=== PATIENT | female | born 1950 | race Caucasian/White ===

== ENCOUNTER → 2016-11-03 | Outpatient (CLI) | payer OTHER ==
[2016-11-03 14:01] LABS: ANION GAP 8 MEQ/L (8-16); BLOOD UREA NITROGEN 19 MG/DL (7-18); CARBON DIOXIDE LEVEL 27 MEQ/L (21-32); CHLORIDE LEVEL 99 MEQ/L (98-107); CREATININE FOR GFR 0.66 MG/DL (0.55-1.02); GLOMERULAR FILTRATION RATE > 60.0 (>45); GLUCOSE, FASTING 208 MG/DL (80-110); POTASSIUM SERUM 4.5 MEQ/L (3.5-5.1); SODIUM LEVEL 134 MEQ/L (136-145)
== END ==
LOC: M WUC 09:50
PROVIDERS: ATTEND Internal Medicine Endocrinology, Diabetes & Metabolism
DX: E11.65 Type 2 diabetes mellitus with hyperglycemia (principal)

== ENCOUNTER → 2016-11-03 | Outpatient (CLI) | payer OTHER ==
[2016-11-03 14:16] LABS: THYROXINE (T4) 10.9 UG/DL (4.5-12.0)
== END ==
LOC: M WUC 09:54
PROVIDERS: ATTEND Family Medicine
DX: E03.9 Hypothyroidism, unspecified (principal)

== ENCOUNTER → 2016-11-25 | Outpatient (CLI) | payer OTHER ==
[~2016-11-25] MED LIST: ASPI81TA85 PO; ATOR1TAB19 PO; BYDU1INJ SQ; CALCTAB7 PO; FARX1TAB3 PO; FISH5CAP PO; HUMA100I5 SQ; HYDR12CA PO; LANTINJ4 SQ; LEVO50TA5 PO; LISI-538 PO; METF10004 PO; METO1TAB7 PO; MULT1TAB10 PO; OMEP20CA3 PO; PARO40TA2 PO
[2016-11-25 09:06] LABS: BASO % 0.6 % (0.0-1.0); EOS # 0.4 K/mm3 (0.0-0.50); EOS % 4.5 % (0.0-3.0); LARGE UNSTAINED CELL # 0.2 K/mm3 (0.0-0.4); LYMPH # 2.7 K/mm3 (1.5-4.5); LYMPH % 30.1 % (24.0-44.0); MEAN CORPUSCULAR HEMOGLOBIN 28.3 pg (27.0-33.0); MEAN CORPUSCULAR VOLUME 85.9 fl (80.0-96.0); MONO # 0.4 K/mm3 (0.0-0.8); MONO % 4.7 % (0.0-5.0); NEUTROPHILS # 5.2 K/mm3 (1.8-7.7); PLATELET COUNT, AUTOMATED 343 k/mm3 (150-450); RED CELL DISTRIBUTION WIDTH 13.4 % (11.5-14.5); WHITE BLOOD COUNT 8.9 K/mm3 (4.0-10.0)
[2016-11-25 09:51] LABS: ALBUMIN 3.6 GM/DL (3.2-5.2); ALBUMIN/GLOBULIN RATIO 0.92 (1.00-1.93); ALKALINE PHOSPHATASE 71 U/L (45-117); ALT/SGPT 32 U/L (12-78); ANION GAP 7 MEQ/L (8-16); AST/SGOT 17 U/L (15-37); BILIRUBIN,TOTAL 0.4 MG/DL (0.2-1.0); BLOOD UREA NITROGEN 17 MG/DL (7-18); CALCIUM LEVEL 9.3 MG/DL (8.8-10.2); CARBON DIOXIDE LEVEL 30 MEQ/L (21-32); CHLORIDE LEVEL 103 MEQ/L (98-107); CHOLESTEROL LEVEL 169 MG/DL (<200); CREATININE FOR GFR 0.68 MG/DL (0.55-1.02); GLOMERULAR FILTRATION RATE > 60.0 (>45); GLUCOSE, FASTING 163 MG/DL (80-110); POTASSIUM SERUM 4.9 MEQ/L (3.5-5.1); SODIUM LEVEL 140 MEQ/L (136-145); TOTAL PROTEIN 7.5 GM/DL (6.4-8.2); TRIGLYCERIDES LEVEL 316 MG/DL (<150)
== END ==
LOC: M WUC 08:02
PROVIDERS: ATTEND Family Medicine
DX: Z00.00 Encounter for general adult medical examination without abnormal findings (principal)

== ENCOUNTER 2017-01-26 06:37 | Outpatient (CLI) | payer OTHER ==
[~2017-01-26] VITALS: Ht 165.1 cm; Wt 95.3 kg
[2017-01-26] MEDS ORDERED: NS 1,000 ML IV ONE (07:00)
[2017-01-26] MEDS ORDERED: PROPOFOL 500 MG/50 ML VIAL As Ordered ONE (07:40)
[2017-01-26] MEDS ORDERED: LIDOCAINE 2% INJ 100 MG/5 ML SDV (FOR ANES.) As Ordered ONE (07:40)
--- NOTE | 2017-01-26 08:12 | ROOR ---
Patient Name: Rebecca Smith Procedure Date: 01/26/2017 7:42 AM Date of : 1950 Age: 66 Room: [facility] Gender: Female Note Status: Finalized Procedure: Colonoscopy Indications: High risk colon cancer surveillance: Personal history of colonic polyps Providers: Hesham Meredith Jr, MD Referring MD: Margy Vernon MD Requesting Provider: Medicines: Propofol per Anesthesia Complications: No immediate complications. Procedure: Pre-Anesthesia Assessment: - Prior to the procedure, a History and Physical was performed, and patient medications and allergies were reviewed. The patient is competent. The risks and benefits of the procedure and the sedation options and risks were discussed with the patient. All questions were answered and informed consent was obtained. Patient identification and proposed procedure were verified by the physician and the nurse in the pre-procedure area and in the procedure room. Mental Status Examination: alert and oriented. Airway Examination: normal oropharyngeal airway and neck mobility. Respiratory Examination: clear to auscultation. CV Examination: normal. ASA Grade Assessment: II - A patient with mild systemic disease. After reviewing the risks and benefits, the patient was deemed in satisfactory condition to undergo the procedure. The anesthesia plan was to use moderate sedation / analgesia (conscious sedation). Immediately prior to administration of medications, the patient was re-assessed for adequacy to receive sedatives. The heart rate, respiratory rate, oxygen saturations, blood pressure, adequacy of pulmonary ventilation, and response to care were monitored throughout the procedure. The physical status of the patient was re-assessed after the procedure. The Colonoscope was introduced through the anus and advanced to the cecum, identified by appendiceal orifice and ileocecal valve. The colonoscopy was performed without difficulty. The patient tolerated the procedure well. The quality of the bowel preparation was adequate and good. Findings: The rectum, recto-sigmoid colon, descending colon, transverse colon, cecum, appendiceal orifice and ileocecal valve appeared normal. Three polyps were found in the sigmoid colon and ascending colon. The polyps were small in size. These polyps were removed with a hot snare. Resection and retrieval were complete. Impression: - The rectum, recto-sigmoid colon, descending colon, transverse colon, cecum, appendiceal orifice and ileocecal valve are normal. - Three small polyps in the sigmoid colon and in the ascending colon, removed with a hot snare. Resected and retrieved. Recommendation: - Repeat colonoscopy in 5 years for surveillance. Hesham Meredith MD Hesham Meredith Jr, MD 01/26/2017 8:12:27 AM This report has been signed electronically. Number of Addenda: 0 Note Initiated On: 01/26/2017 7:42 AM Estimated Blood Loss: Estimated blood loss: none.
[2017-01-26 08:41] VITALS: BP 117/55
== END 2017-01-26 08:43 | disposition home or self-care (01) ==
LOC: M OPP 06:37
PROVIDERS: ATTEND Surgery
DX: Z12.11 Encounter for screening for malignant neoplasm of colon (principal); Z86.010 Personal history of colon polyps; D12.5 Benign neoplasm of sigmoid colon; D12.2 Benign neoplasm of ascending colon; I10 Essential (primary) hypertension; E78.5 Hyperlipidemia, unspecified; E10.9 Type 1 diabetes mellitus without complications; E03.9 Hypothyroidism, unspecified; R12 Heartburn; M19.90 Unspecified osteoarthritis, unspecified site; F41.9 Anxiety disorder, unspecified; G47.8 Other sleep disorders; R06.83 Snoring; Z79.82 Long term (current) use of aspirin; Z79.899 Other long term (current) drug therapy

== ENCOUNTER → 2017-02-09 | Outpatient (CLI) | payer OTHER ==
[2017-02-09 19:18] LABS: FREE T4 1.09 NG/DL (0.76-1.46)
== END ==
LOC: M WUC 10:44
PROVIDERS: ATTEND Family Medicine
DX: E03.9 Hypothyroidism, unspecified (principal)

== ENCOUNTER → 2017-09-29 | Outpatient (CLI) | payer MEDICARE, OTHER ==
[2017-09-29 18:08] LABS: ANION GAP 9 MEQ/L (8-16); BLOOD UREA NITROGEN 21 MG/DL (7-18); CALCIUM LEVEL 9.3 MG/DL (8.8-10.2); CARBON DIOXIDE LEVEL 24 MEQ/L (21-32); CHLORIDE LEVEL 105 MEQ/L (98-107); CHOLESTEROL LEVEL 147 MG/DL (<200); CREATININE FOR GFR 0.76 MG/DL (0.55-1.30); GLOMERULAR FILTRATION RATE > 60.0 (>45); GLUCOSE, FASTING 181 MG/DL (70-100); HDL CHOLESTEROL 42 MG/DL (>40); NON-HDL-C 105 MG/DL; POTASSIUM SERUM 4.8 MEQ/L (3.5-5.1); SODIUM LEVEL 138 MEQ/L (136-145); TRIGLYCERIDES LEVEL 411 MG/DL (<150)
[2017-09-29 18:12] LABS: CREATININE, URINE 91.5 MG/DL; MALB URINE SIEMENS 14.9 MG/L; MAU/CREAT RATIO 16.2 MCG/MG (0.0-30.0)
== END ==
LOC: M WUC 11:00
DX: E11.65 Type 2 diabetes mellitus with hyperglycemia (principal)
CPT/HCPCS: 80061

== ENCOUNTER → 2018-11-26 | Outpatient (REF) | payer MEDICARE, OTHER ==
[~2018-11-26] MED LIST changes: +IBUP200C25 PO; +KP F1200 PO; +NO ITAB PO; -OMEP20CA3 PO; +OMEP20CA4 PO
[2018-11-26 11:02] LABS: POTASSIUM SERUM 4.7 MEQ/L (3.5-5.1)
[2018-11-26 11:04] LABS: HEMATOCRIT 36.9 % (36.0-47.0); HEMOGLOBIN 11.7 g/dl (12.0-15.5); MEAN CORPUSCULAR HEMOGLOBIN 27.3 pg (27.0-33.0); MEAN CORPUSCULAR HGB CONC 31.7 g/dl (32.0-36.5); MEAN CORPUSCULAR VOLUME 86.2 fl (80.0-96.0); PLATELET COUNT, AUTOMATED 416 10^3/uL (150-450); RED BLOOD COUNT 4.28 10^6/uL (4.00-5.40); WHITE BLOOD COUNT 12.5 10^3/uL (4.0-10.0)
[2018-11-26 11:16] LABS: INR 0.99; PROTHROMBIN TIME 12.8 SECONDS (11.8-14.0)
[2018-11-26 11:17] LABS: PARTIAL THROMBOPLASTIN TIME 27.4 SECONDS (25.0-38.4)
== END ==
LOC: M LABDRAW1 10:08
PROVIDERS: ATTEND Orthopaedic Surgery Sports Medicine
DX: Z01.812 Encounter for preprocedural laboratory examination (principal); Z79.82 Long term (current) use of aspirin; Z79.4 Long term (current) use of insulin

== ENCOUNTER 2018-11-27 13:46 | Day surgery (SDC) | payer MEDICARE, OTHER ==
[~2018-11-27] VITALS: Ht 165.1 cm; Wt 99.7 kg
[~2018-11-27 13:46] MED LIST changes: +LR 1,000 ML IV ONE
[2018-11-27] MEDS ORDERED: MIDAZOLAM INJ 2 MG/2 ML VIAL (J2250) As Ordered ONE (18:43)
[2018-11-27] MEDS ORDERED: BUPIVACAINE HCL 0.25% 30 ML VIAL As Ordered ONE (18:43)
[2018-11-27] MEDS ORDERED: fentaNYL 100 MCG/2 ML INJECTION (J3010) As Ordered ONE ×2 (18:43→19:07)
[2018-11-27] MEDS ORDERED: LIDOCAINE 2% INJ 100 MG/5 ML SDV (FOR ANES.) As Ordered ONE (19:07)
[2018-11-27] MEDS ORDERED: PROPOFOL 200 MG/20 ML VIAL As Ordered ONE (19:07)
[2018-11-27] MEDS ORDERED: ROCURONIUM BROMIDE 50 MG/5 ML VIAL As Ordered ONE (19:25)
[2018-11-27] MEDS ORDERED: dexameTHASONE 4 MG/ML 1ML VIAL (J1100) As Ordered ONE (19:47)
[2018-11-27] MEDS ORDERED: ONDANSETRON 4MG/2ML VIAL (J2405) As Ordered ONE (20:04)
[2018-11-27] MEDS ORDERED: HYDROmorphone HCL 2 MG/ML 1ML VIAL (J1170) As Ordered ONE (20:05)
[2018-11-27] MEDS ORDERED: TRANEXAMIC ACID 100 MG/ML 10ML VIAL As Ordered ONE (20:18)
[2018-11-27] MEDS ORDERED: ePHEDrine SULFATE 25 MG/5 ML(5MG/ML) SYRINGE As Ordered ONE (20:44)
[2018-11-27] MEDS ORDERED: GLYCOPYRROLATE INJ 0.2 MG/ML 2 ML VIAL As Ordered ONE (20:59)
[2018-11-27] MEDS ORDERED: NEOSTIGMINE 10 MG/10 ML VIAL (J2710) As Ordered ONE (20:59)
[2018-11-27] MEDS ORDERED: METOCLOPRAMIDE INJ 10MG/2ML VIAL (J2765) As Ordered ONE (20:59)
[2018-11-27] MEDS ORDERED: oxyCODONE 5MG TAB PO PRN (22:30)
[2018-11-27] MEDS ORDERED: PROMETHAZINE INJ 25 MG/ML VIAL (J2550) IV PRN (22:30)
[2018-11-27] MEDS ORDERED: LR 1,000 ML IV SCH ×2 (22:30→23:00)
[2018-11-27] MEDS ORDERED: HYDROMORPHONE HCL 0.5 MG/ 0.5 ML SYRINGE (J1170 PER 1) IV PRN (22:30)
[2018-11-27] MEDS ORDERED: METOCLOPRAMIDE INJ 10MG/2ML VIAL (J2765) IV PRN (22:30)
[2018-11-27] MEDS ORDERED: fentaNYL 100 MCG/2 ML INJECTION (J3010) IV PRN (22:30)
[2018-11-27] MEDS ORDERED: oxyCODONE 5MG TAB As Ordered ONE (22:54)
[2018-11-27 23:50] VITALS: BP 139/63
--- NOTE | 2018-11-28 00:32 | RO ---
DATE OF PROCEDURE: 11/27/2018 PREOPERATIVE DIAGNOSIS: Right proximal and third humerus fracture. POSTOPERATIVE DIAGNOSIS: Right proximal and third humerus fracture. PREOPERATIVE PLANNED PROCEDURE: Right humerus open reduction internal fixation. PROCEDURE PERFORMED: Right humerus open reduction, internal fixation. SURGEON: Pepe Talbot MD HOSPITAL WELLNESS COORDINATOR: NUT SHELLER MACHINE OPERATOR: Dr. Hernández TYPE OF ANESTHETIC: General anesthetic. OPERATIVE PREAMBLE: This 68-year-old female had a proximal humerus fracture. This was just distal to the metaphyseal region. Is was transverse. It was 100% displaced with shortening. We talked about the pros and cons, the risks and benefits of nonsurgical management versus open reduction internal fixation. She wanted surgery, so we went ahead and consented her for that. I reminded her of the possible risks including but not limited to infection, pain, stiffness, bleeding, neurovascular injury, delayed mal or nonunion, as well as anesthetic complications and . She wished to proceed. I marked the right upper extremity in holding. DESCRIPTION OF PROCEDURE: The patient was brought to operating theater. She was placed supine on a cantilever bed with the long end towards the head. A radiolucent Plexiglas was placed to the right upper extremity, hanging off the edge of the bed and then appropriately padded up to the level of the edge of the bed. The patient was moved over to the edge of the bed with her head at the edge of the bed and placed on a donut and taped over a little bit to the side. General anesthesia was induced. Preoperative time-out was performed confirming the site and the patient. Two grams of intravenous (IV) Ancef was administered as well as 2 grams of IV tranexamic acid prior to the start of the case. The right upper extremity was prepped and draped in the usual sterile fashion and free draped. The C-arm was brought in from the superior aspect of the humerus to take AP and axillary lateral radiographs and appropriately draped. I began by making an anterolateral deltoid splitting approach. This was just centered posterior to the anterolateral acromion. I carried this dissection down through skin and subcutaneous tissue to meticulous hemostasis. I identified the avascular raphae between the anterior and middle thirds of the deltoid muscle. I split this along its length. I measured out approximately 6.5 cm distal to the anterolateral acromion to ensure that I was dissecting around the axillary nerve. I identified the nerve, protected it throughout the case. The nerve was a little bit contused in the posterolateral aspect of it, but kept in continuity and protected during the case. This was a little bit draped over the proximal end just distal to the fracture site. I decompressed the fracture. Removed any fracture hematoma. I reestablished the medullary canal. I placed K-wires to joystick the fracture back in place as well as using longitudinal traction on the arm and internal and external rotation. I achieved preliminary reduction from this on AP and axillary lateral radiographs. I then K-wired the fracture. This proved quite difficult given the transverse nature of the fracture. I tried to lewis it in as best as possible with the jagged fracture ends. I elevated the axillary nerve off the lateral aspect of the proximal humerus. I placed a 5-hole Synthes pre-contoured locking plate underneath the axillary nerve and on the lateral aspect of the bone. I then used a fully-threaded cortical screw to secure the plate down to the lateral aspect of the bone. This was near the fracture site, actually; however, it was propping up the medial calcar segment nicely and reducing the Shenton's line of the shoulder actually quite nicely despite some mild gapping on the lateral side, so we accepted this reduction. I ensured that the plate was distal enough by sliding the plate distally using the oblong screw hole as well and ensuring that the proximal locking jig K-wire passed through that and was at the top of the humerus. I then inserted a number of K-wires centralized through the proximal holes in the plate. I took AP and lateral radiographs, as well as moving the arm through a full range of motion while doing both AP and axillary radiographs to ensure that there was no K-wire penetration and that the reduction appeared appropriate. The calcar was quite well aligned. There was a slight gap on the lateral side, but no obvious varus fracture pattern. I inserted the rest of the fully-threaded cortical locking screws, both proximally and distally. I changed out the original reduction screw for a fully-threaded cortical screw that remained supporting the medial calcar segment. Again, range of motion was full and fracture was solidly fixated. I took axillary radiographs to ensure that the proximal screws were nowhere near the joint surface and not penetrating. Wound was thoroughly irrigated with normal saline. Subcutaneous tissues were closed with interrupted and running #2-0 Vicryl suture. Skin was closed with #3-0 Monocryl. Skin was cleaned with a wet and dry dressing followed by application of Mastisol and Steri-Strips. Adaptic with sterile 4 x 8 gauze and sterile ABD dressings were then placed with cloth tape. The arm was placed back in a sling. The patient was woken up from general anesthetic, taken to the postanesthetic care unit in stable condition. All sponge, needle, and instrument counts were correct. There were no complications. Estimated blood loss 150 mL. Plan for the patient is to be in a sling. Nonweightbearing upper extremity. Start pendulum exercises as well as hand, wrist and elbow exercises. I would like to see her in 2 days time, and they already have a followup. Pain medications are electronically sent to her pharmacy. As it is late when I was doing this case, she may stay overnight for a 23-hour hold, but she is also able to go home if she is comfortable. I spoke to both her son and significant other after the case as well. Sincerely, LEIGH
--- NOTE | 2018-11-28 08:33 | REP ---
Right humerus: Limited study intraoperative films. History: ORIF. 1 minute 37 seconds of fluoroscopy time is reported. Findings: A sequence of two last image hold fluoroscopically obtained spot radiographs of the right proximal humerus document screw plate fixation. Electronically Signed by Michael Steele MD 11/28/2018 09:29 A
== END 2018-11-27 23:59 | disposition home or self-care (01) ==
LOC: M SDC 13:46
PROVIDERS: ATTEND Orthopaedic Surgery Sports Medicine
DX: S42.291A Other displaced fracture of upper end of right humerus, initial encounter for closed fracture (principal); I10 Essential (primary) hypertension; E78.5 Hyperlipidemia, unspecified; G47.30 Sleep apnea, unspecified; Z79.82 Long term (current) use of aspirin; E03.9 Hypothyroidism, unspecified; E10.9 Type 1 diabetes mellitus without complications; Z79.4 Long term (current) use of insulin; K21.9 Gastro-esophageal reflux disease without esophagitis; Z79.84 Long term (current) use of oral hypoglycemic drugs; F41.9 Anxiety disorder, unspecified; Z79.899 Other long term (current) drug therapy; Y93.9 Activity, unspecified; Y92.9 Unspecified place or not applicable
CPT/HCPCS: 23615; 73060; C1713; J0690; J1100; J1170; J2405; J2710; J2765; J3010

== ENCOUNTER → 2019-01-02 | Outpatient (REF) | payer MEDICARE, OTHER ==
[~2019-01-02] MED LIST changes: -LR 1,000 ML IV ONE
[2019-01-02 14:53] LABS: BASO # 0.1 10^3/uL (0.0-0.2); BASO % 0.7 % (0.0-1.0); EOS # 0.5 10^3/uL (0.0-0.50); EOS % 6.4 % (0.0-3.0); HEMATOCRIT 34.5 % (36.0-47.0); HEMOGLOBIN 10.6 g/dl (12.0-15.5); LYMPH # 2.4 10^3/uL (1.5-4.5); LYMPH % 28.6 % (24.0-44.0); MEAN CORPUSCULAR HEMOGLOBIN 26.8 pg (27.0-33.0); MEAN CORPUSCULAR HGB CONC 30.7 g/dl (32.0-36.5); MEAN CORPUSCULAR VOLUME 87.1 fl (80.0-96.0); MONO # 0.5 10^3/uL (0.0-0.8); MONO % 5.9 % (0.0-5.0); NEUTROPHILS # 4.8 10^3/uL (1.8-7.7); PLATELET COUNT, AUTOMATED 397 10^3/uL (150-450); RED BLOOD COUNT 3.96 10^6/uL (4.00-5.40); WHITE BLOOD COUNT 8.3 10^3/uL (4.0-10.0)
[2019-01-02 16:09] LABS: FREE T4 1.17 NG/DL (0.76-1.46); THYROID STIMULATING HORMONE 0.284 uIU/ML (0.358-3.740)
== END ==
LOC: M LABDRAW1 08:47
PROVIDERS: ATTEND Family Medicine
DX: E11.69 Type 2 diabetes mellitus with other specified complication (principal); E03.9 Hypothyroidism, unspecified

== ENCOUNTER → 2019-01-02 | Outpatient (REF) | payer MEDICARE, OTHER ==
[2019-01-02 15:17] LABS: CREATININE, URINE 91.3 MG/DL; MALB URINE SIEMENS 24.8 MG/L; MAU/CREAT RATIO 27.1 MCG/MG (0.0-30.0)
[2019-01-02 16:04] LABS: ALBUMIN 3.6 GM/DL (3.2-5.2); ALT/SGPT 38 U/L (12-78); BILIRUBIN,TOTAL 0.5 MG/DL (0.2-1.0); BLOOD UREA NITROGEN 23 MG/DL (7-18); CARBON DIOXIDE LEVEL 28 MEQ/L (21-32); CHLORIDE LEVEL 101 MEQ/L (98-107); CHOLESTEROL LEVEL 147 MG/DL (<200); CHOLESTEROL RISK RATIO 3.062 (<5); CREATININE FOR GFR 0.79 MG/DL (0.55-1.30); GLOMERULAR FILTRATION RATE > 60.0 (>45); GLUCOSE, FASTING 177 MG/DL (70-100); HDL CHOLESTEROL 48 MG/DL (>40); LDL CHOLESTEROL 58 MG/DL (<100); NON-HDL-C 99 MG/DL; POTASSIUM SERUM 4.4 MEQ/L (3.5-5.1); SODIUM LEVEL 139 MEQ/L (136-145); TOTAL PROTEIN 7.6 GM/DL (6.4-8.2); TRIGLYCERIDES LEVEL 207 MG/DL (<150)
== END ==
LOC: M LABDRAW1 08:44
PROVIDERS: ATTEND Nurse Practitioner Family
DX: E11.65 Type 2 diabetes mellitus with hyperglycemia (principal); E78.2 Mixed hyperlipidemia; E03.9 Hypothyroidism, unspecified

== ENCOUNTER → 2019-05-06 | Outpatient (REF) | payer MEDICARE, OTHER ==
[~2019-05-06] MED LIST changes: +OMEP-172 PO; -OMEP20CA4 PO
[2019-05-06 13:30] LABS: FREE T4 1.13 NG/DL (0.76-1.46); THYROID STIMULATING HORMONE 0.455 uIU/ML (0.358-3.740)
== END ==
LOC: M LABDRAW1 08:35
PROVIDERS: ATTEND Family Medicine
DX: E03.9 Hypothyroidism, unspecified (principal)

== ENCOUNTER → 2019-10-30 | Outpatient (CLI) | payer MEDICARE, OTHER ==
[~2019-10-30] MED LIST changes: -OMEP-172 PO; +OMEP1CAP73 PO
[2019-10-30 10:33] LABS: BASO # 0.1 10^3/uL (0.0-0.2); BASO % 0.6 % (0.0-1.0); EOS # 0.3 10^3/uL (0.0-0.5); EOS % 3.5 % (0.0-3.0); HEMATOCRIT 34.9 % (36.0-47.0); LYMPH # 3.1 10^3/uL (1.5-5.0); LYMPH % 31.7 % (24.0-44.0); MEAN CORPUSCULAR HEMOGLOBIN 26.5 pg (27.0-33.0); MEAN CORPUSCULAR HGB CONC 31.5 g/dl (32.0-36.5); MEAN CORPUSCULAR VOLUME 84.1 fl (80.0-96.0); MONO # 0.7 10^3/uL (0.0-0.8); MONO % 6.8 % (0.0-5.0); NEUTROPHILS # 5.6 10^3/uL (1.5-8.5); NEUTROPHILS % 56.9 % (36.0-66.0); PLATELET COUNT, AUTOMATED 380 10^3/uL (150-450); RED BLOOD COUNT 4.15 10^6/uL (4.00-5.40); WHITE BLOOD COUNT 9.8 10^3/uL (4.0-10.0)
[2019-10-30 11:02] LABS: ALBUMIN 3.5 GM/DL (3.2-5.2); ALT/SGPT 37 U/L (12-78); BILIRUBIN,TOTAL 0.2 MG/DL (0.2-1.0); BLOOD UREA NITROGEN 27 MG/DL (7-18); CALCIUM LEVEL 9.6 MG/DL (8.8-10.2); CARBON DIOXIDE LEVEL 29 MEQ/L (21-32); CHLORIDE LEVEL 104 MEQ/L (98-107); CHOLESTEROL LEVEL 120 MG/DL (<200); CREATININE FOR GFR 0.98 MG/DL (0.55-1.30); FREE T4 1.18 NG/DL (0.76-1.46); GLOMERULAR FILTRATION RATE > 60.0 (>45); GLUCOSE, FASTING 142 MG/DL (70-100); HDL CHOLESTEROL 43 MG/DL (>40); LDL CHOLESTEROL 44 MG/DL (<100); NON-HDL-C 77 MG/DL; POTASSIUM SERUM 5.1 MEQ/L (3.5-5.1); SODIUM LEVEL 140 MEQ/L (136-145); THYROID STIMULATING HORMONE 0.429 uIU/ML (0.358-3.740); TOTAL PROTEIN 7.5 GM/DL (6.4-8.2); TRIGLYCERIDES LEVEL 166 MG/DL (<150)
[2019-10-30 11:04] LABS: CREATININE, URINE 92.7 MG/DL; MALB URINE SIEMENS 10.3 MG/L; MAU/CREAT RATIO 11.1 MCG/MG (0.0-30.0)
[2019-10-30 11:14] LABS: HEMOGLOBIN A1c 6.9 %
== END ==
LOC: M WUC 09:05
PROVIDERS: ATTEND Family Medicine
DX: E11.69 Type 2 diabetes mellitus with other specified complication (principal); E03.9 Hypothyroidism, unspecified

== ENCOUNTER → 2020-02-21 | Outpatient (CLI) | payer MEDICARE, OTHER ==
[~2020-02-21] MED LIST changes: -ASPI81TA85 PO; +ASPI81TA86 PO; +CALC-211 PO; -CALCTAB7 PO
[2020-02-21 10:36] LABS: ALBUMIN 3.6 GM/DL (3.2-5.2); ALT/SGPT 25 U/L (12-78); BILIRUBIN,TOTAL 0.3 MG/DL (0.2-1.0); BLOOD UREA NITROGEN 27 MG/DL (7-18); CALCIUM LEVEL 9.7 MG/DL (8.8-10.2); CARBON DIOXIDE LEVEL 29 MEQ/L (21-32); CHLORIDE LEVEL 105 MEQ/L (98-107); CHOLESTEROL LEVEL 168 MG/DL (<200); CHOLESTEROL RISK RATIO 3.733 (<5); CREATININE FOR GFR 0.69 MG/DL (0.55-1.30); FREE T3 2.3 PG/ML (2.2-4.0); FREE T4 1.09 NG/DL (0.76-1.46); GLOMERULAR FILTRATION RATE > 60.0 (>45); GLUCOSE, FASTING 171 MG/DL (70-100); HDL CHOLESTEROL 45 MG/DL (>40); LDL CHOLESTEROL 78 MG/DL (<100); NON-HDL-C 123 MG/DL; POTASSIUM SERUM 5.1 MEQ/L (3.5-5.1); SODIUM LEVEL 138 MEQ/L (136-145); TOTAL PROTEIN 7.4 GM/DL (6.4-8.2); TRIGLYCERIDES LEVEL 224 MG/DL (<150)
[2020-02-21 10:39] LABS: MALB URINE SIEMENS 22.4 MG/L; MAU/CREAT RATIO 16.8 MCG/MG (0.0-30.0); TOTAL 25(OH) VITAMIN D 53.7 NG/ML (30.0-100.0)
[2020-02-21 10:40] LABS: TOTAL T3 76.8 NG/DL (60.0-181.0)
[2020-02-21 10:50] LABS: HEMOGLOBIN A1c 6.7 %
== END ==
LOC: M WUC 08:10
PROVIDERS: ATTEND Internal Medicine Endocrinology, Diabetes & Metabolism
DX: E03.9 Hypothyroidism, unspecified (principal); E11.65 Type 2 diabetes mellitus with hyperglycemia; Z79.4 Long term (current) use of insulin; E78.2 Mixed hyperlipidemia; E55.9 Vitamin D deficiency, unspecified

== ENCOUNTER → 2021-02-18 | Outpatient (CLI) | payer MEDICARE, OTHER ==
[~2021-02-18] MED LIST changes: -LISI-538 PO; +LISI20TA33 PO
--- NOTE | 2021-02-18 08:40 | REP ---
INDICATION: ENCTR SCREEN MAMMO FOR MALIGNANT NEOPLASM OF BREAST. COMPARISON: Multiple TECHNIQUE: Digital screening mammography was carried out bilaterally in the CC and MLO projections using both 2D and 3D modalities and compared to the prior exams By history, the patient has no complaints of a palpable breast abnormality or other significant breast complaints. FINDINGS: The breasts are unchanged in size and shape. Once again, dense heterogenous fibroglandular elements are seen bilaterally. This is to such a degree that the sensitivity of the mammogram in detecting cancer is decreased. Stable benign-appearing calcifications are seen bilaterally. There is no abnormal skin thickening or nipple retraction. In the left breast upper outer quadrant there is a potential osiris density. The Volpara volumetric breast density pattern is C. IMPRESSION: BIRADS/ACR category 0 mammogram. Potential osiris density in the left breast upper outer quadrant for which diagnostic digital DBT spot compression views are recommended in the CC and MLO projections along with diagnostic ultrasonography if indicated. This patient's Tyrer-Cuzick lifetime breast cancer risk assessment score is 5.9%. This mammogram was interpreted with the aid of an FDA-approved computer-aided detection system. The patient states she had a clinical breast exam in January 2021. The patient letter being requested is M0. RECOMMENDATION: As above <Electronically signed by Gildardo Jacinto > 02/18/21 [id number]
== END ==
LOC: M WHC 06:58
PROVIDERS: ATTEND Nurse Practitioner Family
DX: R92.8 Other abnormal and inconclusive findings on diagnostic imaging of breast (principal)

== ENCOUNTER → 2021-02-25 | Outpatient (CLI) | payer MEDICARE, OTHER ==
--- NOTE | 2021-02-25 15:54 | REP ---
INDICATION: LEFT BREAST ADD VIEWS; LEFT BREAST ADD VIEWSINCONCLUSIVE MAMMOGRAM. BI-RADS category 0 incomplete screening study. Possible osiris density upper outer quadrant on the left. Diagnostic imaging was recommended. COMPARISON: February 18, 2021, February 07, 2020, and February 04, 2019. TECHNIQUE: Magnified focal spot-compression CC and MLO views of the left breast are obtained. A true mediolateral view with 3D tomography is performed. Targeted left breast sonography is carried out. This mammogram was interpreted with the aid of an FDA-approved computer-aided detection system. FINDINGS: Diagnostic mammographic views demonstrate scattered fibroglandular elements. A questionable oval-shaped density is visible in the upper outer quadrant on the magnified focal spot compression views. This is not definitely identified on the mediolateral projection. No other significant mammographic finding. The Volpara volumetric breast density pattern is b. Targeted ultrasound: Targeted left breast sonography is performed. Heterogeneous fibroglandular background echotexture is seen. There is a simple cyst noted at the 1:30 o'clock position 5.5 cm from the nipple measuring 0.6 x 0.6 x 0.5 cm. This is felt to account for the mammographic opacity. It has a benign sonographic appearance. IMPRESSION: BIRADS/ACR category 2 benign left breast mammographic and sonographic findings. This patient's Tyrer-Cuzick lifetime breast cancer risk assessment score is 5.9%. RECOMMENDATION: Repeat screening mammography recommended 1 year (for women over 40). The patient letter being requested is M2. <Electronically signed by Josh Steele > 02/25/21 [id number]
== END ==
LOC: M WHC 14:39
PROVIDERS: ATTEND Nurse Practitioner Family
DX: R92.2 Inconclusive mammogram (principal); N60.02 Solitary cyst of left breast

== ENCOUNTER 2022-12-08 06:33 | Day surgery (SDC) | payer MEDICARE, OTHER ==
[~2022-12-08] VITALS: Ht 165.1 cm; Wt 87.6 kg
[~2022-12-08 06:33] MED LIST changes: +ASPI81TA26 PO; +ICOS1CAP PO; +NS 1,000 ML IV ONE; +SEMA2PEN
[2022-12-08] MEDS ORDERED: propofoL 500 MG/50 ML VIAL As Ordered ONE (07:33)
[2022-12-08] MEDS ORDERED: LIDOCAINE 2% 100MG/5ML SDV (FOR ANES.) As Ordered ONE (07:33)
[2022-12-08 08:07] VITALS: TEMP 97.1
[2022-12-08 08:23] VITALS: BP 121/58; O2SAT 96
== END 2022-12-08 08:31 | disposition home or self-care (01) ==
LOC: M OPP 06:33
PROVIDERS: ATTEND Surgery
DX: Z12.11 Encounter for screening for malignant neoplasm of colon (principal); Z86.010 Personal history of colon polyps; D12.6 Benign neoplasm of colon, unspecified; K64.2 Third degree hemorrhoids; Z79.4 Long term (current) use of insulin; Z79.82 Long term (current) use of aspirin